=== PATIENT | female | born 1945 | race Caucasian/White ===

== ENCOUNTER 2022-02-21 13:07 | Inpatient (IN) | payer OTHER ==
[~2022-02-21] VITALS: Ht 162.6 cm; Wt 69.9 kg
[2022-02-25] MEDS ORDERED: SINEMET 25-1001 EACH PO (17:48)
[2022-02-25] MEDS ORDERED: LIPITOR40 MG PO (17:48)
[2022-02-25] MEDS ORDERED: CLOPIDOGREL BIS75 MG PO (17:48)
== END 2022-02-25 21:04 | disposition home or self-care (01) | DRG 65 ==
LOC: ER 13:07 → ICU-2 16:46 → ICU 02-23 02:07 → MEDJ 02-24 21:26
PROVIDERS: ADMIT Internal Medicine; ATTEND Internal Medicine
PROC: B030ZZZ Magnetic Resonance Imaging (MRI) of Brain (ICD-10-PCS; principal; 2022-02-21)
PROC: B020ZZZ Computerized Tomography (CT Scan) of Brain (ICD-10-PCS; 2022-02-21)
PROC: BN25ZZZ Computerized Tomography (CT Scan) of Facial Bones (ICD-10-PCS; 2022-02-21)
PROC: B24BYZZ Ultrasonography of Heart with Aorta using Other Contrast (ICD-10-PCS; 2022-02-22)
PROC: B345ZZZ Ultrasonography of Bilateral Common Carotid Arteries (ICD-10-PCS; 2022-02-22)
DX: I63.29 Cerebral infarction due to unspecified occlusion or stenosis of other precerebral arteries (principal); M62.82 Rhabdomyolysis; R65.10 Systemic inflammatory response syndrome (SIRS) of non-infectious origin without acute organ dysfunction; I11.9 Hypertensive heart disease without heart failure; E11.9 Type 2 diabetes mellitus without complications; E78.5 Hyperlipidemia, unspecified; G20 Parkinson's disease
CPT/HCPCS: 70551

== ENCOUNTER 2023-06-05 15:33 | Emergency (ER) | payer OTHER ==
[~2023-06-05] VITALS: Ht 157.5 cm; Wt 65.8 kg
[~2023-06-05 15:33] MED LIST: CLOPIDOGREL BIS75 MG PO; LIPITOR40 MG PO; SINEMET 25-1001 EACH PO
[2023-06-05] MEDS ORDERED: FARXIGA10 MG PO (16:22)
[2023-06-05] MEDS ORDERED: ELIQUIS5 MG PO (16:23)
[2023-06-05] MEDS ORDERED: METOPROLOL SUCC25 MG PO (16:23)
[2023-06-05] MEDS ORDERED: JANUVIA25 MG PO (16:23)
[2023-06-05] MEDS ORDERED: DONEPEZIL HCL5 MG PO (16:23)
[2023-06-05] MEDS ORDERED: ATORVASTATIN CA40 MG PO (16:24)
[2023-06-05] MEDS ORDERED: METFORMIN HCL500 M4 PO (16:24)
[2023-06-05] MEDS ORDERED: VENLAFAXINE H37.5 M1 PO (16:24)
== END 2023-06-05 22:47 | disposition home or self-care (01) ==
LOC: ER 15:33
DX: R55 Syncope and collapse (principal); E11.9 Type 2 diabetes mellitus without complications; Z79.84 Long term (current) use of oral hypoglycemic drugs; Z20.822 Contact with and (suspected) exposure to COVID-19; G93.89 Other specified disorders of brain

== ENCOUNTER 2023-12-28 17:26 | Emergency (ER) | payer OTHER ==
[~2023-12-28] VITALS: Ht 157.5 cm; Wt 68.0 kg
[~2023-12-28 17:26] MED LIST changes: +ATORVASTATIN CA40 MG PO; +DONEPEZIL HCL5 MG PO; +ELIQUIS5 MG PO; +FARXIGA10 MG PO; +JANUVIA25 MG PO; +METFORMIN HCL500 M4 PO; +METOPROLOL SUCC25 MG PO; +VENLAFAXINE H37.5 M1 PO
[2023-12-28 18:24] LABS: HEMATOCRIT 37.9 % (36.0-45.00); HEMOGLOBIN 12.5 g/dL (12.0-15.00); MEAN CELL VOLUME 89.6 fL (80.00-100.00); MEAN CORPUSCULAR HEMOGLOBIN 29.6 pg (27.00-32.0); PLATELET COUNT 172 K/uL (150-450); RED BLOOD COUNT 4.23 M/uL (4.00-6.00); RED CELL DISTRIBUTION WIDTH 14.2 % (11.5-14.5)
[2023-12-28 18:53] LABS: CALCIUM 8.7 mg/dL (8.5-10.1); CREATININE SERUM 1.54 mg/dL (0.55-1.02); GFR 32.66; POTASSIUM 4.8 mEq/L (3.5-5.1)
[2023-12-28 21:35] LABS: PH,URINE 5.5 (5.0-8.0); URINE APPEARANCE Clear; URINE BILIRRUBIN Negative (NEGATIVE); URINE BLOOD Negative; URINE COLOR Yellow; URINE LEUKOCYTE Negative; URINE NITRATE Negative; URINE PROTEIN Negative (NEGATIVE); URINE UROBILINOGEN 0.2 E.U./dl
[2023-12-28 21:36] LABS: URINE BACTERIA 284.7 uL (0.0-1933); URINE EPITHELIAL CELLS 12.3 uL (0.0-38.8); URINE RBC 13.9 uL (0.0-20.8); URINE WBC 156.7 uL (0.0-23.2)
[2023-12-28 21:45] LABS: URINE GLUCOSE >=1000 MG/DL (NEGATIVE); URINE YEAST MANY /hpf
== END 2023-12-28 22:47 | disposition home or self-care (01) ==
LOC: ER 17:26
PROVIDERS: General Practice
DX: S09.8XXA Other specified injuries of head, initial encounter (principal); W18.39XA Other fall on same level, initial encounter; Y93.89 Activity, other specified; Y92.89 Other specified places as the place of occurrence of the external cause; R42 Dizziness and giddiness; N39.0 Urinary tract infection, site not specified
CPT/HCPCS: 36415; 70450; 72125; 96365; 96366; 99284; J7030

== ENCOUNTER 2024-07-23 10:07 | Emergency (ER) | payer OTHER ==
[~2024-07-23] VITALS: Ht 157.5 cm; Wt 63.5 kg
[2024-07-23] MEDS ORDERED: 0.9 % SODIUM CHLORIDE 1,000 ML IV STA (10:57)
[2024-07-23 11:13] LABS: HEMATOCRIT 40.4 % (36.0-45.00); HEMOGLOBIN 13.8 g/dL (12.0-15.00); MEAN CELL VOLUME 91.1 fL (80.00-100.00); PLATELET COUNT 133 K/uL (150-450); RED BLOOD COUNT 4.44 M/uL (4.00-6.00); RED CELL DISTRIBUTION WIDTH 14.1 % (11.5-14.5)
[2024-07-23 11:48] LABS: CREATININE SERUM 1.21 mg/dL (0.55-1.02); GFR 43.03; POTASSIUM 4.02 mEq/L (3.5-5.1)
== END 2024-07-23 13:53 | disposition home or self-care (01) ==
LOC: ER 10:07
PROVIDERS: General Practice
DX: U07.1 COVID-19 (principal); R47.81 Slurred speech; E11.65 Type 2 diabetes mellitus with hyperglycemia; Z79.84 Long term (current) use of oral hypoglycemic drugs
CPT/HCPCS: 36415; 70450; 96365; 96366; 99284; J7030